=== PATIENT | male | born 1960 | race Caucasian/White ===

== ENCOUNTER → 2016-08-20 | Outpatient (CLI) | payer BC ==
[~2016-08-20] MED LIST: ASPEC325 PO; METO1TAB69 PO; SIMV40TA2 PO; SYN112 PO
== END | disposition home or self-care (01) ==
LOC: C.LABSPEC 13:31
PROVIDERS: ATTEND Dermatology
DX: R21 Rash and other nonspecific skin eruption (principal); L73.9 Follicular disorder, unspecified

== ENCOUNTER → 2017-05-02 | Outpatient (CLI) | payer BC ==
--- NOTE | 2017-05-02 14:55 | DIAGNOSTIC IMAGING REPORT ---
L VENOUS DOPP LOWER EXT UNILAT CLINICAL HISTORY: 56 years-old Male presenting with L LEG PAIN/SWELLING. TECHNIQUE: Real-time grayscale and color and spectral Doppler ultrasound imaging of the veins of the left lower extremity was performed. Compression and augmentation were also utilized. COMPARISON: None. FINDINGS: Left: Common femoral vein: Patent. Femoral vein: Patent. Greater saphenous vein: Patent. Popliteal vein: Patent. Calf veins: Patent. Other: Limited or complex hypoechoic avascular collection measuring 17.7 x 1.1 x 4.6 cm at the site of reported trauma. No peripheral hyperemia. This is located at the medial left calf. IMPRESSION: 1. No evidence of deep venous thrombosis. 2. Medial left calf laminar hematoma. Electronically signed by: Jama Byrd M.D. 05/02/2017 2:53 PM Dictated Date/Time: 05/02/2017 2:52 PM
== END | disposition home or self-care (01) ==
LOC: C.ULTRBC 14:23
DX: S80.12XA Contusion of left lower leg, initial encounter (principal); X58.XXXA Exposure to other specified factors, initial encounter; M79.672 Pain in left foot